=== PATIENT | male | born 1990 | race Caucasian/White ===

== ENCOUNTER → 2020-04-14 15:22 | Outpatient (CLI) | payer OTHER, SELFPAY ==
[2020-04-16 17:21] LABS: COVID19 Sendout Not Detected (Not Detect)
== END ==
PROVIDERS: Visit Provider Nurse Practitioner
DX: Z11.59 Encounter for screening for other viral diseases (principal)
CPT/HCPCS: 87635

== ENCOUNTER → 2021-04-21 09:50 | Outpatient (CLI) | payer OTHER, SELFPAY ==
[2021-04-21 10:26] LABS: COVID19 -Nasal RAPID Negative (Negative)
== END ==
PROVIDERS: Visit Provider Physician Assistant
DX: Z20.822 Contact with and (suspected) exposure to COVID-19 (principal)
CPT/HCPCS: 87635

== ENCOUNTER → 2021-08-12 10:23 | Outpatient (CLI) | payer OTHER, SELFPAY ==
[2021-08-12 10:49] LABS: COVID19 -Nasal RAPID POSITIVE (Negative)
== END ==
PROVIDERS: Referring Provider Nurse Practitioner Family; Visit Provider Nurse Practitioner Family
DX: U07.1 COVID-19 (principal); Z20.822 Contact with and (suspected) exposure to COVID-19
CPT/HCPCS: 87635